=== PATIENT | female | born 1935 | race Caucasian/White ===

== ENCOUNTER 2017-06-12 18:33 | Inpatient (IN) ==
--- NOTE | 2017-06-12 18:39 | Emergency Department Note ---
Disposition Clinical Impression: Abnormal echocardiogram, Weakness Disposition: Admitted As Inpatient Condition: Good Referrals: Jayson Lara MD [Primary Care Provider] - Forms: ED Satisfaction Letter Time of Disposition: 18:57 General Adult HPI - General Chief complaint: ED Weakness Stated complaint: weakness for months Time Seen by Provider: 06/12/17 18:36 Source: patient, family Mode of arrival: wheelchair Limitations: no limitations Nursing Notes Reviewed: Yes Vital Signs Reviewed: Yes - History of Present Illness HPI Narrative: She returns after having an abnormal outpatient echocardiogram. She has experienced exertional weakness for the past several months. No chest pain Onset (ago): month(s) Consistency: intermittent Improves with: rest Worsens with: other (Exertion) Associated symptoms: Reports: denies other symptoms Treatments Prior to Arrival: none - Related Data Home Medications Medication Instructions Recorded Confirmed Clopidogrel [Plavix] 75 mg PO DAILY 05/27/16 07/14/16 Nitroglycerin [Nitrostat] 0.4 mg SL Q5M PRN 05/27/16 07/14/16 Potassium Chloride [K-Tab ER] 10 meq PO DAILY 05/27/16 07/14/16 Sertraline [Zoloft] 12.5 mg PO DAILY 05/27/16 07/14/16 Previous Rx's Medication Instructions Recorded GuaiFENesin Liq [Robitussin Liq] 200 mg PO Q6HR PRN #200 mls 07/16/16 Levofloxacin [Levaquin] 750 mg PO DAILY #5 tablet 07/16/16 Allergies Allergy/AdvReac Type Severity Reaction Status Date / Time metronidazole [From Flagyl] Allergy Difficulty Verified 07/13/16 21:45 Swallowing Penicillins [PCN] Allergy Hives Verified 07/13/16 21:45 morphine AdvReac unknown Verified 07/13/16 21:45 morphine AdvReac Unknown unknown Uncoded 05/27/16 08:13 All systems ED: reviewed and negative except as stated. Constitutional: Reports: weakness Eyes: Reports: as per HPI ENT ED: Reports: as per HPI Cardiovascular: Reports: as per HPI Respiratory: Reports: as per HPI Gastrointestinal: Reports: as per HPI Genitourinary: Reports: as per HPI Musculoskeletal: Reports: as per HPI Integumentary: Reports: as per HPI Neurological: Reports: weakness Psychiatric: Reports: as per HPI Endocrine: Reports: as per HPI Hematological/Lymphatic: Reports: as per HPI Allergic/Immunologic: Reports: as per HPI Past Medical History - Past Medical History Source: patient Medical history: Reports: coronary artery disease, hypertension, myocardial infarction, TIA Surgical history: Reports: cataract Psychiatric history: Reports: no psych history PADDED BOX SEWER history: Reports: no PADDED BOX SEWER history - Social History Smoking Status: Former smoker Smokeless Tobacco Status: No Alcohol use: Reports: none Drug use: Reports: none Physical Exam - General Limitations: no limitations General appearance: alert - Head Head exam: atraumatic - Eye Eye exam: Present: normal appearance - ENT ENT exam: normal exam - Neck Neck exam: Present: normal inspection - Chest Chest inspection: Present: normal inspection, symmetric chest wall rise - Respiratory Respiratory exam: Present: normal lung sounds bilaterally - Cardiovascular Cardiovascular exam: Present: regular rate, normal rhythm, normal heart sounds - Rectal Exam Rectal exam: Present: deferred - Extremities Exam Extremities exam: Present: normal inspection - Neurological Exam Neurological exam: Present: alert, oriented X3, CN II-XII intact - Psychiatric Psychiatric exam: Present: normal affect, normal mood - Skin Skin exam: Present: warm, dry, intact Course Course Narrative: Patient arrives after having an abnormal outpatient echocardiogram showing a suppressed ejection fraction. I will request admission to the medicine service with possible cardiology consultation Vital Signs Temperature 98.0 F 06/12/17 18:36 Pulse Rate 100 06/12/17 18:36 Respiratory Rate 18 06/12/17 18:36 Blood Pressure 124/61 06/12/17 18:36 O2 Sat by Pulse Oximetry 96 06/12/17 18:36 Temperature 98.0 F 06/12/17 18:36 Pulse Rate 100 06/12/17 18:36 Respiratory Rate 18 06/12/17 18:36 Blood Pressure 124/61 06/12/17 18:36 O2 Sat by Pulse Oximetry 96 06/12/17 18:36 Oxygen Delivery Oxygen Delivery Room Air Medical Decision Making - Medical Records Medical records reviewed: Yes I reviewed the patient's medical records. Labs from earlier ED visit reviewed by me. Transcribed report from echocardiogram dated earlier today results reviewed by me Attestation Statement - Attestation Attestation: I examined this patient and my medical decision-making was reviewed with the Resident Physician. I agree with the documented findings, disposition and treatment plan as described except to the extent set forth below. [id number] time provided Patient returns to the emergency department after having her outpatient echocardiogram completed. The preliminary report was ejection fraction of 20% which is lower than previously documented in 2015. Patient denies new complaints. She was previously seen for exertional weakness. We will plan to admit to the medicine service for further evaluation
[2017-06-12] MEDS ORDERED: Acetaminophen 325 MG TABLET PO PRN (21:55)
[2017-06-12] MEDS ORDERED: Naloxone 0.4 MG/ML INJ IVP PRN (21:55)
[2017-06-12] MEDS ORDERED: Nitroglycerin 0.4 MG TAB.SUBL SL PRN (22:00)
--- NOTE | 2017-06-13 04:02 | Internal Med History&Physical ---
Date of Encounter: 06/12/17 Time of Encounter: 21:00 Assessment and Plan (1) Systolic CHF Current visit: Yes Status: Acute Patient has exertional shortness of breath. Recent echo shows EF 15-20%. Consider systolic CHF. - Place patient on continuous cardiac monitoring. - Patient appears euvolemic at this point. - Cardiology consult in a.m. Qualifiers: Congestive heart failure chronicity: acute Qualified Code(s): I50.21 - Acute systolic (congestive) heart failure (2) COPD (chronic obstructive pulmonary disease) Current visit: Yes Status: Acute Stable. Continue home medications Qualifiers: COPD type: emphysema Emphysema type: other Qualified Code(s): J43.8 - Other emphysema (3) CAD (coronary artery disease) Current visit: No Status: Chronic Denies of chest pain. We will continue home medication with Plavix. Other medication adjustment per cardiology Qualifiers: Coronary Disease-Associated Artery/Lesion type: [place] artery [place] vs. transplanted heart: [place] heart Associated angina: without angina Qualified Code(s): I25.10 - Atherosclerotic heart disease of [place] coronary artery without angina pectoris (4) DVT prophylaxis Current visit: No Status: Acute Heparin subcutaneously Internal Medicine - H&P: HPI Chief complaint: Exertional shortness of breath Admitted From: Home Plans for Post Hospital Care: Home History of present illness: Ms. Sparks is a 82 year old female with history of CAD S/P CABG, COPD, aortic artery aneurysm s/p repair, C. difficile colitis, TIA, presented to emergency room for exertional shortness of breath for about 2 months. Patient said she feels tired, has to stop after several steps for breathing. Patient had an echocardiogram as outpatient. She was called by her communications technician to be admitted because of significant decreased LVEF. Patient denies chest pain, nausea, vomiting, or diaphoresis. Past Med Surg Social Fam HX - Past Medical History Medical history: coronary artery disease, hypertension, myocardial infarction, TIA Psychiatric history: no psych history - Past Surgical History Surgical History: cataract, coronary bypass (CABG) - Social History Smoking Status: Former smoker Smokeless Tobacco Status: No Alcohol use: none Drug use: none - Family History Mother History Unknown: Yes Internal Medicine - H&P: Meds Clopidogrel [Plavix] 75 mg PO DAILY 05/27/16 [History] Nitroglycerin [Nitrostat] 0.4 mg SL Q5M PRN 05/27/16 [History] Potassium Chloride [K-Tab ER] 10 meq PO DAILY 05/27/16 [History] Sertraline [Zoloft] 12.5 mg PO DAILY 05/27/16 [History] Ferrous Sulfate [Iron] 325 mg PO DAILY 06/12/17 [History] 3 Allergy/AdvReac Type Severity Reaction Status Date / Time metronidazole [From Flagyl] Allergy Difficulty Verified 07/13/16 21:45 Swallowing Penicillins [PCN] Allergy Hives Verified 07/13/16 21:45 morphine AdvReac unknown Verified 07/13/16 21:45 morphine AdvReac Unknown unknown Uncoded 05/27/16 08:13 All Systems PM: A 10-system review of systems was performed and is negative for pertinent findings except as documented above in the HPI. - Constitutional Vitals: Temp Pulse Resp BP Pulse Ox 98.8 F 103 16 144/78 92 06/13/17 02:46 06/13/17 02:46 06/13/17 02:46 06/13/17 02:46 06/13/17 02:46 General appearance: Present: A&O X 3, pleasant, no acute distress, answers questions appropriately - Head Head exam: Present: atraumatic, normocephalic - Eye Eye exam: Present: PERRL, conjuntiva pink, sclera anicteric Pupils: Present: PERRL - Neck Neck exam general surgery: Present: supple, trachea midline. Absent: lymphadenopathy - Respiratory Respiratory exam: Present: CTAB. Absent: accessory muscle use, rales, rhonchi, wheezes - Cardiovascular Cardiovascular exam: Present: RRR, +S1, +S2. Absent: diastolic murmur, gallop, rubs, systolic murmur - GI/Abdominal GI/Abdominal exam: Present: normal bowel sounds, soft, no peritoneal signs. Absent: distended, tenderness - Extremities Exam Extremities exam: Present: warm, radial pulses palpable and symmetrical. Absent : calf tenderness, cyanotic, pedal edema - Neurological Exam Neurological exam: Present: CN II-XII intact, oriented X3, no focal deficits. Absent: pronater drift, facial droop, speech deficit - Skin Skin exam: Present: dry, intact
[2017-06-13 04:43] LABS: INR 1.1; Prothrombin Time 12.1 Seconds (9.4-12.1)
[2017-06-13 04:50] LABS: Basophils # 0.1 K/mcL (0.0-0.2); Basophils % 1.5 %; Eosinophils # 0.3 K/mcL (0.0-0.6); Hematocrit 31.5 % (35.3-44.9); Hemoglobin 9.2 g/dL (11.5-15.4); Immature Granulocytes % 0.3 % (0-4); Lymphocytes # 1.5 K/mcL (0.6-4.6); Lymphocytes % 25.9 %; Mean Corpuscular HGB Conc 29.2 g/dL (31.6-35.5); Mean Corpuscular Hemoglobin 22.5 pg (28.0-33.3); Mean Corpuscular Volume 77.2 fL (83.0-100.0); Mean Platelet Volume 11.1 fL (9.4-12.4); Monocytes # 0.5 K/mcL (0.0-1.3); Monocytes % 8.4 %; Neutrophils # 3.4 K/mcL (1.6-8.9); Platelet Count 396 K/mcL (140-400); Red Blood Count 4.08 M/mcL (3.82-4.97); Red Cell Distribution Width 18.6 % (11.5-14.5); Segmented Neutrophils % 58.9 %
[2017-06-13 04:59] LABS: % Iron Saturation 7 % (15-50); Iron 24 mcg/dL (50-170); Transferrin 248 mg/dL (180-382)
[2017-06-13 05:20] LABS: Ferritin 67 ng/ml (5-204)
[2017-06-13 05:34] LABS: Folate 13.3 ng/mL (7.0-31.4)
[2017-06-13] MEDS: *HR* Heparin 5,000 UNIT/ML VIAL SQ SCH ×2 (05:40→17:56)
--- NOTE | 2017-06-13 09:34 | Cardiology Consult Note ---
<Carmelo Salmon - Last Filed: 06/13/17 12:47> Date of Encounter: 06/13/17 Time of Encounter: 09:26 Assessment and Plan (1) Systolic CHF with reduced left ventricular function, NYHA class 3 Current Visit: Yes Status: Acute ECHO results from 06/12/17: LVEF 20-25%. Severe global LV systolic dysfunction. Mildly dilated left ventricle. Indeterminate diastolic function. Normal right ventricular structure and function. Mild mitral regurgitation. Mild tricuspid regurgitation. No pulmonary hypertension. When compared to echo, 11/28/14, LV systolic function has declined. Likely Systolic CHF Class 3 with dilated cardiomyopathy Trop 0.01 Recommend cath in the morning d/t SOB, hx of cabg x5 vessel and EF drop from 55 % to 25% NPO midnight. Starting Lisinopril 5mg qd. Patient is already on Lopressor, ASA and plavix. Statin intolerant. Gentle diuresis with Lasix 20mg qd. All questions and concerns were answered. (2) HTN (hypertension) Current Visit: No Status: Chronic BP on arrival was 124/61. HR 100. Today BP 128/80. HR 110. See above. Qualifiers: Hypertension type: essential hypertension Qualified Code(s): I10 - Essential (primary) hypertension (3) CAD (coronary artery disease) Current Visit: No Status: Chronic See below. S/p CABG x5 vessel in 2011. Following Dr. Michaels. Currently on Lopressor, ASA and plavix. Statin intolerant. Qualifiers: Coronary Disease-Associated Artery/Lesion type: bypass graft [place] vs. transplanted heart: [place] heart Associated angina: without angina Qualified Code(s): I25.810 - Atherosclerosis of coronary artery bypass graft(s) without angina pectoris (4) CKD (chronic kidney disease) stage 3, GFR 30-59 ml/min Current Visit: Yes Status: Chronic Managed by Dr. Lara. Last BMP shows Cr. 0.99 and GFR of 54. Normal lytes. (5) Statin intolerance Current Visit: Yes Status: Chronic Per EMR review. (6) S/P AAA repair using straight graft Current Visit: Yes Status: Resolved (7) S/P coronary artery bypass graft x 5 Current Visit: Yes Status: Chronic (8) Iron deficiency anemia, unspecified Current Visit: Yes Status: Acute defer to medical management Qualifiers: Iron deficiency anemia type: unspecified iron deficiency Qualified Code(s) : D50.9 - Iron deficiency anemia, unspecified Discussion w patient/family: The assessment and plan as outlined above was discussed with the patient and/or family members who expressed understanding and agreement. All questions were answered. Thank you for involving us in the care of your patient. Please call with any questions. History of Present Illness Consult date: 06/13/17 Requesting physician: Roberta Mott Consult reason: CHF Chief complaint: shortness of breath, weakness History of present illness: Ms. Sparks is a very pleasant 82 year old female with a past medical history of CAD s/p CABG (5 years ago), COPD, CKD Stage III, AAA repair with straight graft, TIA and statin intolerance who presented to the [facility] Emergency Department yesterday with a chief complaint of shortness of breath and weakness. She reports that Dr. Michaels recently ordered an echocardiogram after seeing her in the office on 05/25/17 that showed severe global left ventricle systolic dysfunction with a decreased from previous EF that is now 20-25%. Patient was subsequently admitted via the hospitalist service and cardiology was consulted for possible CHF/cardiomyopathy. Initial blood-work demonstrates benign CBC, low iron 24 and BNP of 817 that is increased from 05/30/17 of BNP 70. Trop 0.01. On evaluation, she states the shortness of breath does not occur at rest and beings with basic ADLs around the house. Denies any paroxysmal nocturnal orthopnea. Patient appears to have a sedentary lifestyle. No EtOH use. She is currently only taking ASA and clopidogrel due to statin intolerance. Denies any chest pain, palpitations, lightheadedness, abdominal pain or lower extremity edema. Past Med Surg Social Fam HX - Past Medical History Medical history: coronary artery disease, hypertension, myocardial infarction, TIA Psychiatric history: no psych history - Past Surgical History Surgical History: cataract, coronary bypass (CABG) - Social History Smoking Status: Former smoker Smokeless Tobacco Status: No Alcohol use: none Drug use: none - Family History Mother History Unknown: Yes Medications and Allergies Clopidogrel [Plavix] 75 mg PO DAILY 05/27/16 [History] Nitroglycerin [Nitrostat] 0.4 mg SL Q5M PRN 05/27/16 [History] Potassium Chloride [K-Tab ER] 10 meq PO DAILY 05/27/16 [History] Sertraline [Zoloft] 12.5 mg PO DAILY 05/27/16 [History] Ferrous Sulfate [Iron] 325 mg PO DAILY 06/12/17 [History] 3 Allergy/AdvReac Type Severity Reaction Status Date / Time metronidazole [From Flagyl] Allergy Difficulty Verified 07/13/16 21:45 Swallowing Penicillins [PCN] Allergy Hives Verified 07/13/16 21:45 morphine AdvReac unknown Verified 07/13/16 21:45 morphine AdvReac Unknown unknown Uncoded 05/27/16 08:13 All Systems Review: A 10-system review of systems was performed and is negative for pertinent findings except as documented above in the HPI. - Constitutional Constitutional: no headache(s) - EENT Eyes: no blurred vision - Cardiovascular Cardiovascular: as per HPI - Respiratory Respiratory: dyspnea, no cough - Gastrointestinal Gastrointestinal: no abdominal pain - Genitourinary Genitourinary: no dysuria - Musculoskeletal Musculoskeletal: muscle weakness - Neurological Neurological: memory loss Physical Examination Vital Signs, Last 4 Hours Temp Pulse Resp BP Pulse Ox 06/13/17 07:51 98.5 F 110 15 128/80 93 General: Conversant, No Apparent Distress HEENT: Atraumatic, Normocephaly, Mucus Membranes Moist Neck: No JVD, Normal carotid pulses Cardiac: Reg Rate and Rhythm, Normal S1 and S2, No Murmur Lungs: Other (crackles bilateral bases l>r) Neuro: Alert and responsive, No focal deficits noted Abdomen: Soft, Non-Tender Skin: No rashes noted on visualized skin Musculoskeletal: No Chest Wall Tenderness Extremities: No Clubbing, No Cyanosis, No Edema, Normal Pulses Results 06/13/17 03:55 Lab Results 06/13/17 06/13/17 06/13/17 03:55 03:55 03:55 WBC 5.8 Hgb 9.2 L Hct 31.5 L Plt Count 396 INR 1.1 Magnesium 1.9 B-Natriuretic Peptide 06/13/17 03:55 WBC Hgb Hct Plt Count INR Magnesium B-Natriuretic Peptide 817 H - Imaging and Cardiology Echo: report reviewed Consult Discharge Plan - Plan Referrals: Jayson Lara MD [Primary Care Provider] - <Dillon Genao - Last Filed: 06/13/17 13:28> Date of Encounter: 06/13/17 - Attending Attestation I examined this patient and my medical decision-making was reviewed with the Resident Physician. I agree with the documented findings, disposition and treatment plan as described except to the extent set forth below. 82 YOF with h/o CABG and multiple CRF's presents with increasing BAL[place] and fatigue. Echo has an EF recently of 20% dropped from previous baseline in 2015 of 55%. Currently mildly hypervolemic but denies any CP, orthopnea or PND. D/W patient R/B/A of [facility] due to new onset of systolic CHF after CABG in 2011. Patient requests that her sister be involved in discussion. Will obtain Cxray and start gentle diuresis with lasix 20mg X 1 prior to [facility] in am if approved by her sister. Assessment and Plan Discussion w patient/family: The assessment and plan as outlined above was discussed with the patient and/or family members who expressed understanding and agreement. All questions were answered. Thank you for involving us in the care of your patient. Please call with any questions. History of Present Illness History of present illness: Ms. Sparks is a 82 year old female All Systems Review: A 10-system review of systems was performed and is negative for pertinent findings except as documented above in the HPI. Physical Examination Vital Signs, Last 4 Hours Temp Pulse Resp BP Pulse Ox 06/13/17 11:08 97.6 F 84 16 129/80 98 Results 06/13/17 03:55 Lab Results 06/13/17 06/13/17 06/13/17 03:55 03:55 03:55 WBC 5.8 Hgb 9.2 L Hct 31.5 L Plt Count 396 INR 1.1 Magnesium 1.9 B-Natriuretic Peptide 06/13/17 03:55 WBC Hgb Hct Plt Count INR Magnesium B-Natriuretic Peptide 817 H
[2017-06-13] MEDS: Furosemide 20 MG TABLET PO SCH (13:17)
--- NOTE | 2017-06-13 19:33 | Internal Med Progress Note ---
Date of Encounter: 06/13/17 Time of Encounter: 09:10 - Assessment and plan (1) Systolic CHF Current Visit: Yes Status: Acute Assessment and plan: Per cardiology note: ECHO results from 06/12/17: LVEF 20-25%. Severe global LV systolic dysfunction. Mildly dilated left ventricle. Indeterminate diastolic function. Normal right ventricular structure and function. Mild mitral regurgitation. Mild tricuspid regurgitation. No pulmonary hypertension. When compared to echo, 11/28/14, LV systolic function has declined. Likely Systolic CHF Class 3 with dilated cardiomyopathy Trop 0.01 Recommend cath in the morning d/t SOB, hx of cabg x5 vessel and EF drop from 55 % to 25% NPO midnight. Starting Lisinopril 5mg qd. Patient is already on Lopressor, ASA and plavix. Statin intolerant. Gentle diuresis with Lasix 20mg qd. Continue telemetry. Cardiology obviously on board. I appreciate their recommendations and consultation. Qualifiers: Congestive heart failure chronicity: acute Qualified Code(s): I50.21 - Acute systolic (congestive) heart failure (2) CAD (coronary artery disease) Current Visit: No Status: Chronic Assessment and plan: Patient denies chest pain. Continue home medications with aspirin and Plavix. The medications adjusted per cardiology. Qualifiers: Coronary Disease-Associated Artery/Lesion type: bypass graft [place] vs. transplanted heart: [place] heart Associated angina: without angina Qualified Code(s): I25.810 - Atherosclerosis of coronary artery bypass graft(s) without angina pectoris (3) DVT prophylaxis Current Visit: No Status: Acute Assessment and plan: Heparin subcutaneous daily. (4) COPD (chronic obstructive pulmonary disease) Current Visit: Yes Status: Acute Assessment and plan: No acute exacerbation. Lungs are clear, patient has no dyspnea, no respiratory distress, no Rales, wheezes, rhonchi, stridor. She denies cough. She is not requiring submental oxygen. Continue telemetry Continue pulse ox Continue breathing treatments as needed. 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 Hemoglobin is 9.2. Continue to monitor. Continue iron supplements Qualifiers: Iron deficiency anemia type: unspecified iron deficiency Qualified Code(s) : D50.9 - Iron deficiency anemia, unspecified - Time Spent With Patient less than 15 minutes - Subjective Interval history: Patient's resting quietly in bed. She was seen and assessed at 9:10 AM. She denies any dyspnea, headache, nausea, vomiting, diarrhea, dizziness, or chest pain. Patient reports that she does well at home. She does not need any extra assistance. Her lungs are clear diminished. She has no peripheral edema. She reports that she already has home health does not require oxygen at home. - Constitutional Vitals: Temp Pulse Resp BP Pulse Ox 97.7 F 92 16 127/74 94 06/13/17 19:23 06/13/17 19:23 06/13/17 19:23 06/13/17 19:23 06/13/17 19:23 General appearance: Present: cooperative, A&O X 3, pleasant, no acute distress, answers questions appropriately - Head Head exam: Present: atraumatic, normal inspection, normocephalic - Eye Eye exam: Present: EOMI, normal appearance, conjuntiva pink, sclera anicteric - Neck Neck exam general surgery: Present: supple, trachea midline. Absent: lymphadenopathy, tenderness - Respiratory Respiratory exam: Present: decreased breath sounds, CTAB. Absent: accessory muscle use, chest wall tenderness, rales, respiratory distress, rhonchi, wheezes - Cardiovascular Cardiovascular exam: Present: RRR, +S1, +S2. Absent: bradycardia, diastolic murmur, gallop, rubs, systolic murmur - GI/Abdominal GI/Abdominal exam: Present: normal bowel sounds, soft, no peritoneal signs. Absent: distended, hepatomegaly, tenderness - Extremities Exam Extremities exam: Present: normal capillary refill, normal inspection, warm, radial pulses palpable and symmetrical. Absent: calf tenderness, cyanotic, pedal edema, tenderness - Neurological Exam Neurological exam: Present: alert, oriented X3, no focal deficits. Absent: motor sensory deficit, facial droop, speech deficit - Skin Skin exam: Present: dry, intact, normal color, warm. Absent: rash Internal Medicine: Result - Labs CBC & Chem 7: 06/13/17 03:55 Labs: Short CBC 06/13/17 Range/Units 03:55 WBC 5.8 (4.3-11.1) K/mcL Hgb 9.2 L (11.5-15.4) g/dL Hct 31.5 L (35.3-44.9) % Plt Count 396 (140-400) K/mcL Neutrophils # 3.4 (1.6-8.9) K/mcL - ABG Interpretation ABG results: PT/INR, D-dimer PT 12.1 Seconds (9.4-12.1) 06/13/17 03:55 Consult Discharge Plan - Plan Referrals: Jayson Lara MD [Primary Care Provider] -
[2017-06-14 04:16] LABS: Hematocrit 31.2 % (35.3-44.9); Immature Granulocytes % 0.4 % (0-4); Red Cell Distribution Width 18.6 % (11.5-14.5)
[2017-06-14 04:17] LABS: Basophils # 0.1 K/mcL (0.0-0.2); Basophils % 1.8 %; Eosinophils # 0.2 K/mcL (0.0-0.6); Eosinophils % 2.9 %; Hemoglobin 9.1 g/dL (11.5-15.4); Lymphocytes # 1.6 K/mcL (0.6-4.6); Lymphocytes % 31.4 %; Mean Corpuscular HGB Conc 29.2 g/dL (31.6-35.5); Mean Corpuscular Hemoglobin 22.2 pg (28.0-33.3); Mean Corpuscular Volume 76.3 fL (83.0-100.0); Mean Platelet Volume 10.7 fL (9.4-12.4); Monocytes # 0.4 K/mcL (0.0-1.3); Monocytes % 8.4 %; Neutrophils # 2.8 K/mcL (1.6-8.9); Platelet Count 379 K/mcL (140-400); Red Blood Count 4.09 M/mcL (3.82-4.97); Segmented Neutrophils % 55.1 %
[2017-06-14 04:33] LABS: Anisocytosis 1+ (Not Present); BUN/Creatinine Ratio 13 (6-26); Blood Urea Nitrogen 12 mg/dL (7-20); Calcium 8.6 mg/dL (8.6-10.8); Carbon Dioxide 25 mEq/L (19-29); Chloride 106 mEq/L (98-109); Glucose 82 mg/dL (70-99); Hypochromasia Present (Not Present); Large Platelets Present (Not Present); Microcytosis Present (Not Present); Osmolality,Calculated 287 (280-300); Platelet Estimate Normal (Normal); Potassium 3.7 mEq/L (3.5-4.5); Sodium 139 mEq/L (136-145); eGFR For African Americans > 60 (> 60); eGFR For Non-African Americans 58 (> 60)
[2017-06-14] MEDS: *HR* Heparin 5,000 UNIT/ML VIAL SQ SCH ×2 (05:43→19:30)
[2017-06-14] MEDS: Furosemide 20 MG TABLET PO SCH (10:39)
[2017-06-14] MEDS ORDERED: *HR* Heparin 10,000 UNIT/10 ML VIAL ONE (13:27)
[2017-06-14] MEDS ORDERED: Nitroglycerin 1,000 MCG/10 ML VIAL IV ONE (13:27)
[2017-06-14] MEDS ORDERED: Verapamil 5 MG/2 ML VIAL ONE (13:27)
[2017-06-14] MEDS ORDERED: 0.9 % Sodium Chloride 1,000 ML ONE ×2 (13:27→14:13)
[2017-06-14] MEDS ORDERED: Heparin 1,000 UNITS/500 mL NS 500 ML ONE (13:27)
--- NOTE | 2017-06-14 14:11 | Pre-Sedation Evaluation ---
Pre-sedation evaluation - Pre-sedation checklist Date of procedure: 06/14/17 Procedure: heart cath Recent Vitals: Last Vital Signs Temp 97.9 F 06/14/17 11:49 Pulse 79 06/14/17 11:49 Resp 16 06/14/17 11:49 BP 111/64 06/14/17 11:49 Pulse Ox 90 06/14/17 11:49 H&P (including ROS) documented in medical record: Yes Previous reaction to sedatives/anesthetics: No Dietary Status: NPO after Midnight Dentition: dentures removed ASA Classification *see protocol: CLASS II-Mild systemic disease Plan of Care: Pt appropriate candidate for procedure/moderate/conscious sedation , Risks/benefits of procedure/sedation discussed w/ patient/family
[2017-06-14] MEDS ORDERED: *HR* FentaNYL (PF) 100 MCG/2 ML VIAL ONE (14:13)
[2017-06-14] MEDS ORDERED: *HR* Midazolam HCl 2 MG/2 ML VIAL ONE (14:13)
[2017-06-14] MEDS ORDERED: Tirofiban 5 MG/100ML 5 MG/100 ML BAG IV ONE (15:12)
[2017-06-14] MEDS ORDERED: Ondansetron 4 MG/2 ML VIAL IVP PRN (15:15)
[2017-06-14] MEDS ORDERED: *HR* HYDROcodone/Acet 5/325 mg TABLET PO PRN (15:15)
[2017-06-14] MEDS ORDERED: Aspirin 81 MG TAB.CHEW ONE (15:21)
[2017-06-14] MEDS ORDERED: Tirofiban 12.5 MG/250ML 12.5 MG/250 ML BAG IVC SCH (15:30)
--- NOTE | 2017-06-14 15:49 | Invasive Diagnostic Lab Proc ---
Name: Cely Sparks Date of Study: 06/14/2017 Date: 1935 Ht: 61.8in Medical Record#: [id number] Age: 82 Wt: 95.02lb Gender: Female BSA: 1.39 Order #: [id number] BMI: 17.49 Physicians Procedure Physician: Pradeep Busby MD, [facility] Referring MD: Referring MD: Staff Name Position Time In Narcisa Teague RT (R) Monitor 02:13 PM Nel Kary RT Scrub 02:14 PM Asha Thomas RN Printed Circuit Board Preassembler 02:14 PM Rusty Farias RN Printed Circuit Board Preassembler 02:14 PM Indications Indication Cardiomyopathy Procedures Performed Procedure L HRT ART/GRFT ANGIO PRQ CARD SULLY STENT W/ANGIO 1 VSL Pre-Procedure Checklist Informed consent is complete signed and on chart. H&P is on chart. ID band is on and ID verified with patient. Patient NPO for procedure The procedure was described for the patient and questions were answered. ECG is on chart. Plan of Care Patient will tolerate the procedure without complications. Adequate level of comfort will be maintained. Hemodynamics will remain stable Patient will recover from procedure without complications. Respiratory function will be maintained. Cardiac rhythm will remain stable. Patient temperature will be maintained. Patient and/or family have verbalized understanding of the procedure. Patient Education Chief Complaint/Reason for Test: Cardiac Cath Developmental Category: Geriatric (65+ years) Developmentally Appropriate for Age: Yes Learning Barriers: None Education Needs: Procedure Education Method: Verbal Information Taught: Cardiac Cath Educational Evaluation: Able to repeat information Intravenous Access Time IV Size Location DC'd Fluid/Drip Rate Units RN 02:15 PM 20g 1 1/" Patent On Arrival Rt Antecubital 0.9NaCl 25 ml/hr Rusty Farias RN Allergies Penicillins metronidazole morphine Vital Signs Time BP (mmHg) HR (bpm) O2 Sat. RR (bpm) LOC 02:14 PM / % 5 = Fully awake and oriented or at pre-proc level 02:14 PM / % 4 = Oriented but drowsy 02:29 PM / % 4 = Oriented but drowsy 02:55 PM / % 4 = Oriented but drowsy 02:55 PM / % 4 = Oriented but drowsy 03:10 PM / % 4 = Oriented but drowsy 02:13 PM 135 / 68 149 99 % 20 02:18 PM 129 / 64 75 99 % 18 02:23 PM 99 / 48 73 95 % 22 02:28 PM 123 / 60 76 96 % 19 02:33 PM 100 / 57 74 96 % 30 02:44 PM 119 / 60 77 97 % 17 02:49 PM 130 / 69 77 98 % 15 02:54 PM 135 / 73 76 97 % 18 02:59 PM 140 / 71 76 99 % 20 03:04 PM 148 / 79 77 98 % 17 03:09 PM 151 / 78 77 98 % 19 03:14 PM 152 / 82 78 100 % 18 Procedural Medications Time Medication Dose Units Method Given By 02:14 PM Oxygen 2 L/min nasal cannula Asha Thomas RN 02:22 PM Versed 2 mg Intravenous Rusty Farias RN 02:22 PM Fentanyl 50 mcg Intravenous Rusty Farias RN 02:25 PM Lidocaine 2% 14 ml Subcutaneous Pradeep Busby MD, FACC 02:46 PM Heparin 4000 units Intravenous Rusty Farias RN 03:16 PM Aggrastat Bolus: 21 ml Intravenous Rusty Farias RN 03:17 PM Aggrastat 5mg/100ml 3.75 ml Intravenous Rusty Farias RN 03:18 PM Plavix 600 mg Orally Rusty Farias RN 03:23 PM Aspirin (81mg) 324 mg Orally Rusty Farias RN ASA Classification: CLASS II- Mild systemic disease (i.e. well-controlled diabetes, hypertension, asthma, cigarette smoking) Henri Score Preprocedure Postprocedure Activity 2- Moves 4 extremities sustained head lift Activity 2- Moves 4 extremities sustained head lift Circulation 2- SBP +/= 20 points of pre-anesthetic level Circulation 2- SBP +/= 20 points of pre-anesthetic level Consciousness 2- Awake and alert oriented x 3 Consciousness 2- Awake and alert oriented x 3 O2 Saturation 2- Able to maintain O2 satruation of 92% on room air O2 Saturation 2- Able to maintain O2 satruation of 92% on room air Respiratory 2- Able to deep breathe and cough well Respiratory 2- Able to deep breathe and cough well Total Score 10 Total Score 10 Contrast Agent: Isovue Diagnostic Contrast: 108 ml Total Contrast: 108 ml Fluoro Dose: 157 mGy Activated Clotting Time Time Seconds to Clot 03:18 PM 255 Procedure Log Time Note Enter By 01:41 PM CathStat 02:12 PM Vitals capture started with the following parameters, Patient=Adult, Interval=5 min, Initial Ofwuulyo=488 mmHg, Deflation Rate=5 mmHg, Cuff placed on Right Arm 02: PM PT=569 bpm, YVBE=908/68 mmhg, SpO2=99.0 %, Resp=20 B/min 02:13 PM Pt arrived to labor service representative 1 at 14:13 twilson 02:13 PM Patient charges- Angio tray pack, Navilyst 3mm J, Pulse Oximetry and ACIST tubing and transducer twilson : PM Case Delayed no twilson : PM Physician arrived 14:13 twilson : PM Meet and greet completed twilson : PM Sign in performed according to hospital policy. twilson : PM Procedure start 14:13 twilson : PM ASA Class CLASS II- Mild systemic disease (i.e. well-controlled diabetes, hypertension, asthma, cigarette smoking) twilson 02: PM Narcisa Teague RT (R) Position: Monitor Time in: :ilson 02: PM Kary Neumann RT Position: Scrub Time in: : twilson 02:14 PM Asha Thomas RN Position: Printed Circuit Board Preassembler Time in: : twilson 02:14 PM Rusty Farias RN Position: Printed Circuit Board Preassembler Time in: :14 ilson : PM Hair removed from procedure site in procedure lab using clippers. Bilateral groin prepped with Chloraprep by Asha Thomas RN, safety strap applied then patient was draped. Skin intact. tw: PM Time: 14:14 Oxygen on at 2 L/min per nasal cannula by Asha Thomas RN ilson : PM Time: 14:14 Patient comfortable and pain free: Yes tw: PM Time: 14:14LOC: 5 = Fully awake and oriented or at pre-proc level twilson 02:18 PM HR=75 bpm, RBBY=490/64 mmhg, SpO2=99.0 %, Resp=18 B/min 02: PM Time: 14:22 Versed 2 mg Intravenous Given by Rusty Farias RN ilson 02: PM Time: 14:22 Fentanyl 50 mcg Intravenous Given by Rusty Farias RN twilson : PM Recorded ECG: HR=74 Condition=Condition 1 02:23 PM HR=73 bpm, NIBP=99/48 mmhg, SpO2=95.0 %, Resp=22 B/min 02:24 PM Pressure channel 1 zeroed. 02:24 PM Time out performed according to hospital policy tw: PM Time: 14:25 14 ml Lidocaine 2% to right groin Subcutaneous Given by Pradeep Busby MD, [facility] twilson 02:26 PM Access obtained by percutaneous puncture. 5Fr 10cm Terumo [place] sheath placed in right Femoral artery. [id number] twilson 02:27 PM 5Fr FR 4 catheter inserted over the wire [facility] twilson 02:27 PM Wire removed, intact. twilson 02:27 PM RCA angiography performed in multiple views. twilson 02: PM Recorded Pressure: Ao, HR=77, Condition=Condition 1 (Aorta) Ao 105/55/78 02:28 PM Lesion found in Mid RCA. Pre Stenosis: 100 Pre SURESH Flow: twilson 02: PM Right Coronary, Right Posterior Descending Arteries with Right Posterolateral and Acute Marginal branches with 100 % stenosis. If graft is supplying this area, 0 % stenosis twilson 02: PM HR=76 bpm, ZXHP=970/60 mmhg, SpO2=96.0 %, Resp=19 B/min 02:28 PM SVG to the RPDA angio performed in multiple views. twilson 02:28 PM Recorded Pressure: Ao, HR=76, Condition=Condition 1 (Aorta) Ao 104/58/78 02:29 PM Recorded Pressure: Ao, HR=76, Condition=Condition 1 (Aorta) Ao 106/79/90 02:29 PM Recorded Pressure: Ao, HR=74, Condition=Condition 1 (Aorta) Ao 101/57/76 02:29 PM Time: 14:14 Patient comfortable and pain free: Yes twilson 02:29 PM Time: 14:14LOC: 4 = Oriented but drowsy twilson 02:29 PM SVG to the 1st Diagonal/1st OM angio performed in multiple views. twilson 02:30 PM Recorded Pressure: Ao, HR=73, Condition=Condition 1 (Aorta) Ao 97/51/71 02:31 PM 0.035 260cm Navilyst 3mmJ wire [id number] twilson 02:32 PM Wire inserted and catheter removed, intact. twilson 02:32 PM 5Fr IM catheter inserted over the wire [id number] twilson 02:33 PM HR=74 bpm, YQCF=983/57 mmhg, SpO2=96.0 %, Resp=30 B/min 02:33 PM Left TATO to the LAD angio performed in multiple views. twilson 02:34 PM Recorded Pressure: Ao, HR=75, Condition=Condition 1 (Aorta) Ao 89/50/68 02:34 PM Wire reinserted. twilson 02:34 PM Wire removed, intact. twilson 02:35 PM Wire reinserted. twilson 02:36 PM Wire removed, intact. twilson 02:37 PM NIBP STAT measurement started. 02:37 PM Vitals capture stopped. 02:38 PM Inflation device was opened. twilson 02:38 PM Left TATO to the LAD angio performed in multiple views. twilson 02:39 PM Wire reinserted. twilson 02:39 PM Vitals capture started with the following parameters, Patient=Adult, Interval=5 min, Initial Rkpzbiso=870 mmHg, Deflation Rate=5 mmHg, Cuff placed on Right Arm 02:39 PM Catheter removed twilson 02:40 PM 5Fr FL 4 catheter inserted over the wire [facility] twilson 02:40 PM Wire removed, intact. twilson 02:40 PM Recorded Pressure: Ao, HR=76, Condition=Condition 1 (Aorta) Ao 110/50/75 02:41 PM LCA angiography performed in multiple views. twilson 02:41 PM Recorded Pressure: Ao, HR=68, Condition=Condition 1 (Aorta) Ao 108/51/75 02:42 PM Lesion found in Mid LAD. Pre Stenosis: 100 Pre SURESH Flow: twilson 02:42 PM Mid/Distal Left Anterior Descending Coronary Artery and diagonal branches with 100% stenosis. If graft is supplying this area, 0 % stenosis twilson 02:42 PM Lesion found in LMCA. Pre Stenosis: 50 Pre SURESH Flow: twilson 02:42 PM Left Main Coronary Artery with 50% stenosis twilson 02:42 PM Lesion found in 1st Marginal. Pre Stenosis: 100 Pre SURESH Flow: twilson 02:43 PM Circumflex, Obtuse Marginal, Left Posterior Descending, and Left Posterolateral Coronary Arteries with 100 % stenosis. If graft is supplying this area, 0 % stenosis twilson 02:43 PM Wire reinserted. twilson 02:43 PM Wire removed, intact. twilson 02:44 PM Vitals capture started with the following parameters, Patient=Adult, Interval=5 min, Initial Vjsjohqw=158 mmHg, Deflation Rate=5 mmHg, Cuff placed on Right Arm 02:44 PM 5Fr Pigtail catheter inserted over the wire [facility] twilson 02:44 PM Catheter selectively placed in left ventricle twilson 02:44 PM Recorded Pressure: LV, HR=77, Condition=Condition 1 (Left Ventricle) LV 128/-5/9 02:44 PM Recorded Pressure: LV, Ao, HR=77, Condition=Condition 1 (Left Ventricle) LV 125/-5/9, (Aorta) Ao 134/35/77 02:44 PM HR=77 bpm, VHGL=614/60 mmhg, SpO2=97.0 %, Resp=17 B/min 02:44 PM Pressure channel 1 zeroed. 02:44 PM Time: 14:29LOC: 4 = Oriented but drowsy twilson 02:44 PM Time: 14:29 Patient comfortable and pain free: Yes twilson 02:44 PM No LV gram. Pressures only. twilson 02:45 PM Wire reinserted and catheter removed. twilson 02:45 PM Sheath exchanged for a 6 Fr 11 cm Terumo [place] sheath [id number] twilson 02:46 PM Time: 14:46 Heparin 4000 units Intravenous Given by Rusty Farias RN twilson 02:46 PM 6Fr JR 4 Cordis guide catheter was used to cannulate the PCI vessel successfully. reused? No twilson 02:46 PM Wire removed, intact. twilson 02:46 PM Recorded Pressure: Ao, HR=77, Condition=Condition 1 (Aorta) Ao 140/68/97 02:48 PM Wire reinserted. twilson 02:48 PM Wire removed, intact. twilson 02:49 PM .014 Spearfish 190cm guide wire across target lesion- successful. reused? No twilson 02:49 PM Recorded Pressure: Ao, HR=75, Condition=Condition 1 (Aorta) Ao 138/79/103 02:49 PM HR=77 bpm, AJHR=623/69 mmhg, SpO2=98.0 %, Resp=15 B/min 02:50 PM Recorded Pressure: Ao, HR=76, Condition=Condition 1 (Aorta) Ao 145/67/98 02:54 PM Guidewire removed, intact. twilson 02:54 PM HR=76 bpm, ZVNF=572/73 mmhg, SpO2=97.0 %, Resp=18 B/min 02:55 PM Recorded Pressure: Ao, HR=77, Condition=Condition 1 (Aorta) Ao 154/67/101 02:55 PM Time: 14:55 Patient comfortable and pain free: Yes twilson 02:55 PM Time: 14:55LOC: 4 = Oriented but drowsy twilson 02:56 PM 6Fr MP1 Runway guide catheter was used to cannulate the PCI vessel successfully. reused? No twilson 02:56 PM Spearfish wire reinserted. twilson 02:57 PM Difficulty passing marvel through. twilson 02:57 PM Recorded Pressure: Ao, HR=76, Condition=Condition 1 (Aorta) Ao 100/46/66 02:58 PM 2.25 mm x 15 mm Emerge Monorail balloon across target lesion- successful. reused? No twilson 02:58 PM Recorded Pressure: Ao, HR=76, Condition=Condition 1 (Aorta) Ao 134/73/100 02:59 PM HR=76 bpm, YGOF=626/71 mmhg, SpO2=99.0 %, Resp=20 B/min 02:59 PM Balloon inflated @ 8 anthony for 15 seconds twilson 03:00 PM Recorded Pressure: Ao, HR=76, Condition=Condition 1 (Aorta) Ao 139/73/101 03:01 PM Recorded Pressure: Ao, HR=76, Condition=Condition 1 (Aorta) Ao 153/70/103 03:02 PM Recorded Pressure: Ao, HR=76, Condition=Condition 1 (Aorta) Ao 148/67/99 03:02 PM Balloon catheter removed intact. twilson 03:04 PM 3.0mm x 12mm Synergy drug-eluting stent across target lesion- successful Lot #[id number] twilson 03:04 PM Stent deployed @ 15 anthony for 30 seconds twilson 03:04 PM HR=77 bpm, DCOR=201/79 mmhg, SpO2=98.0 %, Resp=17 B/min 03:04 PM Recorded Pressure: Ao, HR=78, Condition=Condition 1 (Aorta) Ao 140/82/108 03:05 PM Stent delivery system removed intact. twilson 03:05 PM PCI Status Urgent twilson 03:06 PM PCI Indication: PCI for high risk Non-STEMI or unstable angina twilson 03:06 PM PCI lesion inSVG to the Right PDA. Pre Stenosis: 95 Pre SURESH Flow: 3: Complete and Brisk Flow/Perfusion twilson 03:06 PM 3.5 mm x 12mm NC Trek Rx balloon across target lesion- successful. reused? No twilson 03:07 PM Balloon inflated @ 16 anthony for 15 seconds twilson 03:07 PM Recorded Pressure: Ao, HR=78, Condition=Condition 1 (Aorta) Ao 147/77/108 03:08 PM Balloon catheter removed intact. twilson 03:09 PM 4.5 mm x 8mm NC Emerge balloon across target lesion- successful. reused? No twilson 03:09 PM HR=77 bpm, ODIS=076/78 mmhg, SpO2=98.0 %, Resp=19 B/min 03:10 PM Balloon inflated @ 12 anthony for 8 seconds twilson 03:10 PM Balloon inflated @ 12 anthony for 10 seconds twilson 03:10 PM Time: 14:55 Patient comfortable and pain free: Yes twilson 03:10 PM Time: 14:55LOC: 4 = Oriented but drowsy twilson 03:11 PM Balloon catheter removed intact. twilson 03:11 PM Guide wire removed intact. twilson 03:11 PM Jwire reinserted. twilson 03:11 PM Wire and catheter removed, intact. twilson 03:14 PM ACT drawn twilson 03:14 PM Procedure completed at 15:14 twilson 03:14 PM HR=78 bpm, WUQG=406/82 mmhg, HoL1=335.0 %, Resp=18 B/min 03:14 PM Sign out completed: Radiation Dose 156.61 mGy Fluoro Time: 16.7 Isovue 370 - 200ml contrast 108 ml given by Pradeep Busby MD, FACC. Complications: NoneCardiac Rehab Consult needed: YesConfirmed administered medications: Yes twilson 03:15 PM Isovue 370 - 500ml,1 Bottle(s) used. twilson 03:15 PM Sheath left in place to be pulled on floor/holding areaV+Pad twilson 03:15 PM Post ECG NSR twilson 03:15 PM Post Blood Pressure 152/82 twilson 03:16 PM Time: 15:16 Aggrastat Bolus: 21 ml Intravenous Given by Rusty Farias RN [place] pump twilson 03:17 PM Time: 15:17 Aggrastat 5mg/100ml 3.75 ml Intravenous Given by Rusty Farias RN [place] pump twilson 03:17 PM Family placed in consult room. twilson 03:18 PM At 15:18 the ACT was 255 seconds. twilson 03:18 PM Time: 15:18 Plavix 600 mg Orally Given by Rusty Farias RN twilson 03:19 PM Vitals capture stopped. 03:21 PM 15:21 Post Pulses Bilateral DP & PT 2+ twilson 03:22 PM Information taught Cardiac Cath and PCI twilson 03:22 PM Education needs Procedure, Plan of Care, and Responsibilities of Patient in Care twilson 03:22 PM Learning barriers :None twilson 03:22 PM Education Methods Verbal twilson 03:22 PM Education evaluation Able to repeat information twilson 03:22 PM Site status No bleeding/hematoma - Rt Groin as reported by Kary Neumann RT at 15:22 twilson 03:22 PM Opsite applied twilson 03:22 PM Plavix, Effient or Brilinta given Yes twilson 03:25 PM Time: 15:23 Aspirin (81mg) 324 mg Orally Given by Rusty Farias RN twilson 03:26 PM Time: 15:10LOC: 4 = Oriented but drowsy twilson 03:26 PM Time: 15:10 Patient comfortable and pain free: Yes twilson 03:35 PM Report given to NGUYEN Pt taken to 2N Room #13. 15:35 twilson 03:35 PM Patient out of room: 15:35 twilson 03:43 PM Coronary Dominance: right twilson Complications Complication None Hemodynamics Pressures Site Systolic/A Wave Diastolic/V Wave Mean AO 105 55 78 AO 104 58 78 AO 106 79 90 AO 101 57 76 AO 97 51 71 AO 89 50 68 AO 110 50 75 AO 108 51 75 LV 128 -5 9 LV 125 -5 9 AO 134 35 77 AO 140 68 97 AO 138 79 103 AO 145 67 98 AO 154 67 101 AO 100 46 66 AO 134 73 100 AO 139 73 101 AO 153 70 103 AO 148 67 99 AO 140 82 108 AO 147 77 108 Post Procedure Information Blood Pressure: 152/82 mmHg Rhythm: NSR Post procedural instructions were given Site Checks Time Location Status Staff Sheath In? Note 03:22 PM Rt Groin No bleeding/hematoma Kary Neumann RT Yes Pulses Time Site Pre-Procedure Post-Procedure Note 06/14/2017 2:15:00 PM Bilateral DP & PT 2+ 06/14/2017 2:15:00 PM Bilateral radial 2+ 3:21:00 PM Bilateral DP & PT 2+ Updated by RT Charles (R) on 06/14/2017 3:44:44 PM electronically signed on 06/14/2017 3:45:31 PM with status of Final
--- NOTE | 2017-06-14 16:32 | Internal Med Progress Note ---
Date of Encounter: 06/14/17 Time of Encounter: 08:00 - Assessment and plan (1) Systolic CHF Current Visit: Yes Status: Acute Assessment and plan: Per cardiology note: ECHO results from 06/12/17: LVEF 20-25%. Severe global LV systolic dysfunction. Mildly dilated left ventricle. Indeterminate diastolic function. Normal right ventricular structure and function. Mild mitral regurgitation. Mild tricuspid regurgitation. No pulmonary hypertension. When compared to echo, 11/28/14, LV systolic function has declined. Likely Systolic CHF Class 3 with dilated cardiomyopathy Trop 0.01 Recommend cath in the morning d/t SOB, hx of cabg x5 vessel and EF drop from 55 % to 25% NPO midnight. Starting Lisinopril 5mg qd. Patient is already on Lopressor, ASA and plavix. Statin intolerant. Gentle diuresis with Lasix 20mg qd. Continue telemetry. Cardiology obviously on board. I appreciate their recommendations and consultation. Pt had C today with stent placement and was moved to . Qualifiers: Congestive heart failure chronicity: acute Qualified Code(s): I50.21 - Acute systolic (congestive) heart failure (2) CAD (coronary artery disease) Current Visit: No Status: Chronic Assessment and plan: Patient denies chest pain. Continue home medications with aspirin and Plavix. The medications adjusted per cardiology. Pt with multivessel disease per [facility] today. Continue anticoagulation per recommendation of cardiology, as well as BB. Qualifiers: Coronary Disease-Associated Artery/Lesion type: bypass graft [place] vs. transplanted heart: [place] heart Associated angina: without angina Qualified Code(s): I25.810 - Atherosclerosis of coronary artery bypass graft(s) without angina pectoris (3) DVT prophylaxis Current Visit: No Status: Acute Assessment and plan: Heparin subcutaneous daily. (4) COPD (chronic obstructive pulmonary disease) Current Visit: Yes Status: Acute Assessment and plan: No acute exacerbation. Lungs are clear, patient has no dyspnea, no respiratory distress, no Rales, wheezes, rhonchi, stridor. She denies cough. She is not requiring supplemental oxygen. Continue telemetry Continue pulse ox Continue breathing treatments as needed. 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 Hemoglobin is 9.1. Continue to monitor. Continue iron supplements Stool occult blood ordered and pending. Qualifiers: Iron deficiency anemia type: unspecified iron deficiency Qualified Code(s) : D50.9 - Iron deficiency anemia, unspecified - Time Spent With Patient less than 15 minutes - Subjective Interval history: Patient's resting quietly in bed. She was seen and assessed at 0800 AM. She denies any dyspnea, headache, nausea, vomiting, diarrhea, dizziness, or chest pain. Patient reports that she does well at home. She does not need any extra assistance. Her lungs are clear diminished. She has no peripheral edema. She reports that she already has home health does not require oxygen at home. Pt was moved to after [facility] with stent placement today. - Constitutional Vitals: Temp Pulse Resp BP Pulse Ox 97.9 F 73 17 141/71 91 06/14/17 11:49 06/14/17 16:16 06/14/17 16:16 06/14/17 16:16 06/14/17 16:16 General appearance: Present: cooperative, A&O X 3, pleasant, no acute distress, answers questions appropriately - Head Head exam: Present: atraumatic, normal inspection, normocephalic - Eye Eye exam: Present: EOMI, normal appearance, conjuntiva pink, sclera anicteric - Neck Neck exam general surgery: Present: supple, trachea midline. Absent: lymphadenopathy, tenderness - Respiratory Respiratory exam: Present: CTAB. Absent: accessory muscle use, decreased breath sounds, rales, respiratory distress, rhonchi, wheezes - Cardiovascular Cardiovascular exam: Present: RRR, +S1, +S2. Absent: diastolic murmur, gallop, rubs, systolic murmur - GI/Abdominal GI/Abdominal exam: Present: distended, normal bowel sounds, soft, no peritoneal signs. Absent: hepatomegaly, tenderness - Extremities Exam Extremities exam: Present: normal inspection, warm, radial pulses palpable and symmetrical. Absent: calf tenderness, cyanotic, pedal edema, tenderness - Neurological Exam Neurological exam: Present: alert, oriented X3, no focal deficits. Absent: facial droop, speech deficit - Skin Skin exam: Present: dry, intact, normal color, warm. Absent: rash Internal Medicine: Result - Labs CBC & Chem 7: 06/14/17 03:26 06/14/17 03:26 Labs: Short CBC 06/14/17 Range/Units 03:26 WBC 5.1 (4.3-11.1) K/mcL Hgb 9.1 L (11.5-15.4) g/dL Hct 31.2 L (35.3-44.9) % Plt Count 379 (140-400) K/mcL Neutrophils # 2.8 (1.6-8.9) K/mcL BMP 06/14/17 03:26 Sodium 139 Potassium 3.7 Chloride 106 Carbon Dioxide 25 BUN 12 Creatinine 0.92 Glucose 82 Calcium 8.6 - ABG Interpretation ABG results: PT/INR, D-dimer PT 12.1 Seconds (9.4-12.1) 06/13/17 03:55 Consult Discharge Plan - Plan Referrals: Jayson Lara MD [Primary Care Provider] -
[2017-06-15] MEDS: *HR* Heparin 5,000 UNIT/ML VIAL SQ SCH (05:53)
[2017-06-15 06:29] LABS: Basophils # 0.1 K/mcL (0.0-0.2); Basophils % 1.7 %; Eosinophils # 0.2 K/mcL (0.0-0.6); Eosinophils % 2.9 %; Hematocrit 31.4 % (35.3-44.9); Hemoglobin 9.1 g/dL (11.5-15.4); Immature Granulocytes % 0.2 % (0-4); Lymphocytes # 0.9 K/mcL (0.6-4.6); Lymphocytes % 15.1 %; Mean Corpuscular Hemoglobin 22.3 pg (28.0-33.3); Mean Platelet Volume 10.4 fL (9.4-12.4); Monocytes # 0.5 K/mcL (0.0-1.3); Monocytes % 8.1 %; Neutrophils # 4.2 K/mcL (1.6-8.9); Platelet Count 408 K/mcL (140-400); Red Blood Count 4.08 M/mcL (3.82-4.97); Red Cell Distribution Width 18.6 % (11.5-14.5)
[2017-06-15 06:47] LABS: BUN/Creatinine Ratio 19 (6-26); Blood Urea Nitrogen 17 mg/dL (7-20); Calcium 8.4 mg/dL (8.6-10.8); Carbon Dioxide 20 mEq/L (19-29); Chloride 107 mEq/L (98-109); Glucose 79 mg/dL (70-99); Osmolality,Calculated 286 (280-300); Potassium 3.8 mEq/L (3.5-4.5); Sodium 138 mEq/L (136-145); eGFR For African Americans > 60 (> 60); eGFR For Non-African Americans 59 (> 60)
[2017-06-15] MEDS: Furosemide 20 MG TABLET PO SCH (07:50)
--- NOTE | 2017-06-15 08:59 | Cardiology Progress Note ---
<Carmelo Salmon - Last Filed: 06/15/17 10:28> Date of Encounter: 06/15/17 Time of Encounter: 08:57 Assessment and Plan (1) Systolic CHF with reduced left ventricular function, NYHA class 3 Current Visit: Yes Status: Acute Cath yesterday demonstrated: Severe three vessel CAD, S/p CABG with 2/3 patient bypass grafts Patient underwent successful PTCA/SULLY placment in the proximal SVG to the right PDA Dual therapy anti-coagulation for 1 year with ASA and plavix Continue Metoprolol, Lisinopril and Lasix VSS on telemetry. Cardiac rehab referral sent today Femoral access site are c/d/i. No evidence of drainage, erythema or hematoma formation. Discussed at length the procedure and aftercare Followup cardiology appointment made. Cardiology will sign off at this time. Thank you for involving us in the care of Ms. Sparks. Please re-consult if there are any concerns/questions in the future. (2) HTN (hypertension) Current Visit: No Status: Chronic Tolerating addition of Zestril Qualifiers: Hypertension type: essential hypertension Qualified Code(s): I10 - Essential (primary) hypertension (3) CAD (coronary artery disease) Current Visit: No Status: Chronic See below. S/p CABG x5 vessel in 2011. Following Dr. Haney. Currently on Zestril, Lopressor, ASA and plavix. Statin intolerant. Qualifiers: Coronary Disease-Associated Artery/Lesion type: bypass graft [place] vs. transplanted heart: [place] heart Associated angina: without angina Qualified Code(s): I25.810 - Atherosclerosis of coronary artery bypass graft(s) without angina pectoris (4) CKD (chronic kidney disease) stage 3, GFR 30-59 ml/min Current Visit: Yes Status: Chronic Per medical management. Cr. 0.91, Normal lytes. (5) Statin intolerance Current Visit: Yes Status: Chronic Per EMR review. (6) S/P AAA repair using straight graft Current Visit: Yes Status: Resolved (7) S/P coronary artery bypass graft x 5 Current Visit: Yes Status: Chronic (8) Iron deficiency anemia, unspecified Current Visit: Yes Status: Acute defer to medical management Qualifiers: Iron deficiency anemia type: unspecified iron deficiency Qualified Code(s) : D50.9 - Iron deficiency anemia, unspecified Discussion w patient/family: The assessment and plan as outlined above was discussed with the patient and/or family members who expressed understanding and agreement. All questions were answered. Thank you for involving us in the care of your patient. Please call with any questions. Subjective Principal diagnosis: cariomyopathy Interval history: Patient is resting comfortably in bed this morning without sister present. She is complaining of mild fatigue since yesterday. Denies any pain or drainage from femoral access site. No concerns overnight per nursing. Denies any chest pain, shortness of breath, palpitations, lightheadedness, orthopnea, PND, lower extremity edema. Objective Vital Signs, Last 4 Hours Temp Pulse Resp BP Pulse Ox 06/15/17 07:00 98.1 F 77 16 143/79 92 General: Conversant, No Apparent Distress HEENT: Atraumatic, Normocephaly, Mucus Membranes Moist Neck: No JVD, Normal carotid pulses Cardiac: Reg Rate and Rhythm, Normal S1 and S2, No Murmur Lungs: Normal Breath Sounds, No Wheeze, Rales, Rhonchi Neuro: Alert and responsive, No focal deficits noted Abdomen: Soft, Non-Tender Skin: No rashes noted on visualized skin Musculoskeletal: No Chest Wall Tenderness Extremities: No Clubbing, No Cyanosis, No Edema, Normal Pulses Results 06/15/17 05:59 06/15/17 05:59 Lab Results 06/15/17 06/15/17 05:59 05:59 WBC 5.8 Hgb 9.1 L Hct 31.4 L Plt Count 408 H Sodium 138 Potassium 3.8 Chloride 107 Carbon Dioxide 20 BUN 17 Creatinine 0.91 Glucose 79 Calcium 8.4 L - Imaging and Cardiology Cardiac cath: report reviewed - EKG Interpretation EKG results cardiology: personally reviewed, normal ECG Consult Discharge Plan - Plan Instructions: Heart Failure (DC) Referrals: Pradeep Busby MD [Partnered Physician] - (Cardiology office will call you with an appointment date and time.) Mindy Littlejohn FURNACE LINER [Advanced Practice Nurse] - 06/21/17 10:00 am Prescriptions: Aspirin 81 mg PO DAILY #30 tab.chew Furosemide [Lasix] 20 mg PO DAILY #30 tablet Lisinopril [Zestril] 5 mg PO DAILY #30 tablet Metoprolol [Lopressor] 12.5 mg PO BID #60 tablet <Dillon Genao - Last Filed: 06/15/17 13:37> Date of Encounter: 06/15/17 Assessment and Plan (1) CAD (coronary artery disease) Current Visit: No Status: Chronic See below. I examined this patient and my medical decision-making was reviewed with the Resident Physician. I agree with the documented findings, disposition and treatment plan as described except to the extent set forth below. 82-year-old female status post PCI to her proximal SVG to RPDA after new onset ischemic cardio myopathy and injection fraction 20%. Patient will continue on dual therapy follow-up with application security architect in outpatient. Patient will likely benefit from a repeat echocardiogram to evaluate need for ICD. This can be arranged through the outpatient setting Qualifiers: Coronary Disease-Associated Artery/Lesion type: bypass graft [place] vs. transplanted heart: [place] heart Associated angina: without angina Qualified Code(s): I25.810 - Atherosclerosis of coronary artery bypass graft(s) without angina pectoris Discussion w patient/family: The assessment and plan as outlined above was discussed with the patient and/or family members who expressed understanding and agreement. All questions were answered. Thank you for involving us in the care of your patient. Please call with any questions. Objective Vital Signs, Last 4 Hours Pulse Resp BP Pulse Ox 06/15/17 10:48 77 16 108/68 94 Results 06/15/17 05:59 06/15/17 05:59 Lab Results 06/15/17 06/15/17 05:59 05:59 WBC 5.8 Hgb 9.1 L Hct 31.4 L Plt Count 408 H Sodium 138 Potassium 3.8 Chloride 107 Carbon Dioxide 20 BUN 17 Creatinine 0.91 Glucose 79 Calcium 8.4 L
[2017-06-15] MEDS ORDERED: Aspirin 81 MG TAB.CHEW PO SCH (09:00)
[2017-06-15 10:50] VITALS: BP 108/68
--- NOTE | 2017-06-15 11:52 | Discharge Summary ---
Date of Encounter: 06/15/17 Time of Encounter: 09:10 - Discharge Diagnosis (1) Systolic CHF with reduced left ventricular function, NYHA class 3 Priority: Primary Status: Acute Comments: Systolic CHF with dilated cardiomyopathy, history of coronary artery disease status post CABG 5 vessel LVEF 20-25%, severe global LV systolic dysfunction [facility] on 06/14/2017: Severe three vessel CAD, S/p CABG with 2/3 patient bypass grafts Patient underwent successful PTCA/SULLY placment in the proximal SVG to the right PDA Continue Dual therapy 1 year with ASA, Plavix Continue Metoprolol, Lisinopril, Zestril and Lasix Patient cannot tolerate statins Femoral access site looks good, with no hematoma and distal pulses palpable Followup with cardiology as outpatient, cardiac rehabilitation referral (2) CAD (coronary artery disease) Priority: Primary Status: Chronic Comments: Coronary artery disease, status post CABG 5 vessel Status post PTCA/SULLY proximal SVG to the right PDA on 06/14/2017 Continue Aspirin, Plavix, Lopressor, Zestril Patient cannot tolerate statins Follow-up with cardiology as outpatient Qualifiers: Coronary Disease-Associated Artery/Lesion type: bypass graft [place] vs. transplanted heart: [place] heart Associated angina: without angina Qualified Code(s): I25.810 - Atherosclerosis of coronary artery bypass graft(s) without angina pectoris (3) HTN (hypertension) Priority: Secondary Status: Chronic Comments: Essential hypertension, controlled, monitor Continue Zestril, Lopressor Qualifiers: Hypertension type: essential hypertension Qualified Code(s): I10 - Essential (primary) hypertension (4) CKD (chronic kidney disease) stage 3, GFR 30-59 ml/min Priority: Secondary Status: Chronic Comments: Chronic kidney disease stage III, stable - creatinine and GFR at baseline (5) Iron deficiency anemia, unspecified Priority: Secondary Status: Chronic Comments: Chronic iron deficiency anemia, H&H stable Qualifiers: Iron deficiency anemia type: unspecified iron deficiency Qualified Code(s) : D50.9 - Iron deficiency anemia, unspecified (6) S/P AAA repair using straight graft Priority: Secondary Status: Chronic - Discharge Medications Prescriptions: Aspirin 81 mg PO DAILY #30 tab.chew Furosemide [Lasix] 20 mg PO DAILY #30 tablet Lisinopril [Zestril] 5 mg PO DAILY #30 tablet Metoprolol [Lopressor] 12.5 mg PO BID #60 tablet Home Medications: Clopidogrel [Plavix] 75 mg PO DAILY 05/27/16 [History] Nitroglycerin [Nitrostat] 0.4 mg SL Q5M PRN 05/27/16 [History] Potassium Chloride [K-Tab ER] 10 meq PO DAILY 05/27/16 [History] Sertraline [Zoloft] 12.5 mg PO DAILY 05/27/16 [History] Ferrous Sulfate [Iron] 325 mg PO DAILY 06/12/17 [History] Aspirin 81 mg PO DAILY #30 tab.chew 06/15/17 [Rx] Furosemide [Lasix] 20 mg PO DAILY #30 tablet 06/15/17 [Rx] Lisinopril [Zestril] 5 mg PO DAILY #30 tablet 06/15/17 [Rx] Metoprolol [Lopressor] 12.5 mg PO BID #60 tablet 06/15/17 [Rx] Allergies/Adverse Reactions: 3 Allergy/AdvReac Type Severity Reaction Status Date / Time metronidazole [From Flagyl] Allergy Difficulty Verified 07/13/16 21:45 Swallowing Penicillins [PCN] Allergy Hives Verified 07/13/16 21:45 morphine AdvReac unknown Verified 07/13/16 21:45 morphine AdvReac Unknown unknown Uncoded 05/27/16 08:13 Date of admission: 06/14/17 17:34 Primary care physician: Jayson Lara MD Consults: 06/15/17 08:00 Consult to Cardiac Rehabilitation-Phase1 [CONS] Routine Comment: Reason for Consult: s/p PCI Call Completed: No Anticipated date of discharge: 06/15/17 - Patient Status Disposition: Home Health Service Condition: Good Functional capacity at discharge: uses cane/walker Overall status at discharge: patient is progressing back to baseline - Discharge Instructions Instructions: Heart Failure (DC) Follow Up With: Pradeep Busby MD [Partnered Physician] - (Cardiology office will call you with an appointment date and time.) Mindy Littlejohn CNP [Advanced Practice Nurse] - 06/21/17 10:00 am - Diet and Activity Activity: increase activity as tolerated, resume usual activities as tolerated Diet: low fat, low cholesterol Hospital course: Ms. Sparks is a 82 year old female with past medical history of coronary artery disease, hypertension, history of [place] and TIA. Patient presents to the ED with complaints of shortness of breath. She does complain of fatigue. She apparently had a outpatient echocardiogram and was advised to go to the ER because of decreased LVEF. Patient was admitted for systolic CHF with LVEF of 20%. She did not seem fluid overloaded and was euvolemic. Patient was continued on home medications. Troponin is negative. She was started on Lopressor and lisinopril. She is intolerant to statins. Patient underwent successful PTCA/SULLY placement in the proximal SVG to the right PDA. She will need to continue dual antiplatelet therapy for 1 year with aspirin and Plavix. Patient will also need to be on beta xiomy and lisinopril. Patient tolerated the procedure well. She had no other acute events or consultations during his stay. Patient states he feels better and wants to go home today. She has been explained about her condition and plan of care in detail. I also discussed with patient's sister. They understood and agreed. No unanswered questions. Patient is being discharged in stable condition. She is tolerating oral diet well and ambulating with minimal assistance. - Time Spent with Patient Total time spent providing and/or coordinating discharge services: Less than 30 minutes - Constitutional Vitals: Temp Pulse Resp BP Pulse Ox 98.1 F 77 16 108/68 94 06/15/17 07:00 06/15/17 10:48 06/15/17 10:48 06/15/17 10:48 06/15/17 10:48 General appearance: Present: cachectic, cooperative, A&O X 3, pleasant, no acute distress, underweight, answers questions appropriately - Head Head exam: Present: atraumatic - Eye Eye exam: Present: EOMI - ENT ENT exam: Present: mucous membranes moist - Respiratory Respiratory exam: Present: CTAB. Absent: rales, rhonchi, wheezes, tachypnea - Cardiovascular Cardiovascular exam: Present: RRR, +S1, +S2 - GI/Abdominal GI/Abdominal exam: Present: soft. Absent: distended, firm, guarding, tenderness - Extremities Exam Extremities exam: Present: radial pulses palpable and symmetrical. Absent: calf tenderness, cyanotic, pedal edema - Neurological Exam Neurological exam: Present: alert, oriented X3, no focal deficits. Absent: facial droop, speech deficit
--- NOTE | 2017-06-15 12:09 | Physician Discharge Referral ---
Home Health/Hosp Referral Info Transfer to: Home Health Provider in Charge Post Discharge: PCP - Diagnosis (1) Systolic CHF with reduced left ventricular function, NYHA class 3 Priority: Primary Status: Acute (2) CAD (coronary artery disease) Priority: Primary Status: Chronic (3) HTN (hypertension) Priority: Secondary Status: Chronic (4) CKD (chronic kidney disease) stage 3, GFR 30-59 ml/min Priority: Secondary Status: Chronic (5) Iron deficiency anemia, unspecified Priority: Secondary Status: Chronic (6) S/P AAA repair using straight graft Priority: Secondary Status: Chronic - Respiratory Orders Smoking Cessation: Smoking cessation has been advised. For more information, call the [place] [employer] Quit Line at 4-471-UUDS-NOW. - Diet/Nutrition Diet/Nutrition Orders: Cardiac - Activity Activity Orders: Ambulate - Services Needed Following services are medically necessary services: Nursing, Physical Therapy - Transfer Medications Prescriptions: Aspirin 81 mg PO DAILY #30 tab.chew Furosemide [Lasix] 20 mg PO DAILY #30 tablet Lisinopril [Zestril] 5 mg PO DAILY #30 tablet Metoprolol [Lopressor] 12.5 mg PO BID #60 tablet Home Medications: Clopidogrel [Plavix] 75 mg PO DAILY 05/27/16 [History] Nitroglycerin [Nitrostat] 0.4 mg SL Q5M PRN 05/27/16 [History] Potassium Chloride [K-Tab ER] 10 meq PO DAILY 05/27/16 [History] Sertraline [Zoloft] 12.5 mg PO DAILY 05/27/16 [History] Ferrous Sulfate [Iron] 325 mg PO DAILY 06/12/17 [History] Aspirin 81 mg PO DAILY #30 tab.chew 06/15/17 [Rx] Furosemide [Lasix] 20 mg PO DAILY #30 tablet 06/15/17 [Rx] Lisinopril [Zestril] 5 mg PO DAILY #30 tablet 06/15/17 [Rx] Metoprolol [Lopressor] 12.5 mg PO BID #60 tablet 06/15/17 [Rx] Allergies/Adverse Reactions: 3 Allergy/AdvReac Type Severity Reaction Status Date / Time metronidazole [From Flagyl] Allergy Difficulty Verified 07/13/16 21:45 Swallowing Penicillins [PCN] Allergy Hives Verified 07/13/16 21:45 morphine AdvReac unknown Verified 07/13/16 21:45 morphine AdvReac Unknown unknown Uncoded 05/27/16 08:13 Certification: Further, I certify that my clinical findings support that this patient is homebound (i.e. absences from home require considerable and taxing effort and are for medical reasons or anabaptist services or infrequently or short duration when for other reasons) because: Homebound Reason: Patient requires assistance of a person or device to safely leave home Attestation: My signature below is to certify that this patient is under my care and that I, or nurse practitioner, or a physician's patent legal assistant working with me, has a face-to -face encounter with this patient.
--- NOTE | 2017-06-15 17:01 | Electrocardiograph Report ---
[place] [id number] Test Date: 2017-06-14 Pat Name: Cely Sparks Department: 110 Room: 2N13 Gender: Integration Consultant: OSIEL : [id number] Requested By: Pradeep Busby Order Number: [id number] Reading MD: Jayson Mejia Measurements Intervals [place] Rate: 75 P: 60 OK: 146 QRS: -50 QRSD: 81 T: -73 QT: 401 QTc: 430 Interpretive Statements SINUS RHYTHM POSSIBLE LEFT ATRIAL ENLARGEMENT MARKED LEFT AXIS DEVIATION LEFT VENTRICULAR HYPERTROPHY AND ST-T CHANGE Electronically Signed On 06-15-2017 16:59:52 EDT by Jayson Mejia
== END 2017-06-15 13:53 | disposition home health service (06) | DRG 246 ==
LOC: 3BNU 18:33 → EMEROO 18:33 → 3BNU 20:16 → 2NNU 06-14 15:13
PROVIDERS: ADMIT Registered Nurse; ATTEND Registered Nurse